=== PATIENT | female | born 2000 | race Two or more races ===

== ENCOUNTER 2018-01-14 13:47 | Emergency (ER) | payer OTHER ==
[2018-01-14] MEDS ORDERED: METOCLOPRAMIDE HCL 10 MG TABLET PO ONE (14:44)
[2018-01-14 14:53] LABS: AMORPHOUS SEDIMENT,URINE TRACE /HPF; APPEARANCE,URINE SLIGHTLY-CLOUDY; BILIRUBIN,URINE NEGATIVE (NEGATIVE); COLOR,URINE YELLOW; GLUCOSE, URINE NEGATIVE (NEGATIVE); KETONES,URINE NEGATIVE (NEGATIVE); LEUKOCYTE ESTERASE,URINE NEGATIVE (NEGATIVE); NITRITE,URINE NEGATIVE (NEGATIVE); PROTEIN,URINE NEGATIVE (NEGATIVE); URINE SPECIFIC GRAVITY 1.015; UROBILINOGEN,URINE NEGATIVE mg/dL (<2.0)
--- NOTE | 2018-01-14 14:59 | ER Document Report ---
ED GI/ - General Chief Complaint: Nausea Stated Complaint: NAUSEA Time Seen by Provider: 01/14/18 14:11 Mode of Arrival: Ambulatory Information source: Patient Notes: Patient is a 17-year-old female who presents to the ER today for nausea times 4 days. Patient denies any vomiting, diarrhea, abdominal pain, fever, chills, cough, runny nose or other symptoms. Patient does not think she is but is sexually active. Patient also states that her mother gets nauseous whenever she is stressed out and patient has had extra stress recently at school and home. TRAVEL OUTSIDE OF THE [place] IN LAST 30 DAYS: No - Related Data Allergies/Adverse Reactions: No Known Allergies Allergy (Verified 01/14/18 14:33) Past Medical History - General Information source: Patient - Social History Smoking Status: Never Smoker Chew tobacco use (# tins/day): No Frequency of alcohol use: None Drug Abuse: None Family History: Reviewed & Not Pertinent Patient has suicidal ideation: No Patient has homicidal ideation: No Renal/ Medical History: Denies: Hx Peritoneal Dialysis Review of Systems - Review of Systems Constitutional: No symptoms reported EENT: No symptoms reported Cardiovascular: No symptoms reported Respiratory: No symptoms reported Gastrointestinal: See HPI Genitourinary: No symptoms reported Female Genitourinary: No symptoms reported Musculoskeletal: No symptoms reported Skin: No symptoms reported Hematologic/Lymphatic: No symptoms reported Neurological/Psychological: No symptoms reported Physical Exam - Vital signs Vitals: Temp Pulse Resp BP Pulse Ox 98.5 F 83 16 131/75 H 100 01/14/18 13:53 01/14/18 13:53 01/14/18 13:53 01/14/18 13:53 01/14/18 13:53 - Notes Notes: PHYSICAL EXAMINATION: GENERAL: Well-appearing and in no acute distress. HEAD: Atraumatic, normocephalic. EYES: Pupils equal round and reactive to light, extraocular movements intact, sclera anicteric, conjunctiva are normal. ENT: ear canals without erythema or foreign body, TMs pearly elliott with good bony landmarks, nares patent, oropharynx clear without exudates. Moist mucous membranes. NECK: Normal range of motion, supple without lymphadenopathy LUNGS: CTAB and equal. No wheezes rales or rhonchi. HEART: Regular rate and rhythm without murmurs ABDOMEN: Soft, no tenderness. No guarding, no rebound BACK: no vertebral tenderness, normal ROM GI/: no CVA tenderness EXTREMITIES: Normal range of motion, no pitting edema. No cyanosis. NEUROLOGICAL: Cranial nerves grossly intact. Normal sensory/motor exams. PSYCH: Normal mood, normal affect. SKIN: Warm, Dry, normal turgor, no rashes or lesions noted Course - Re-evaluation Re-evalutation: 01/14/18 15:12 negative, urinalysis negative for any infection or blood. Patient did better with Reglan here, ate and drink without any nausea or issues. - Vital Signs Vital signs: Temp Pulse Resp BP Pulse Ox 98.5 F 91 H 16 119/69 99 01/14/18 15:16 01/14/18 15:16 01/14/18 15:16 01/14/18 15:16 01/14/18 15:16 Discharge - Discharge Clinical Impression: Nausea Condition: Stable Disposition: HOME, SELF-CARE Additional Instructions: Return immediately for any new or worsening symptoms. Follow up with primary care provider, call tomorrow to make followup appointment. Prescriptions: Metoclopramide HCl [Reglan 10 mg Tablet] 10 mg PO TID PRN #30 tablet PRN Reason:
[2018-01-14 15:18] VITALS: BP 119/69
== END 2018-01-14 15:18 | disposition home or self-care (01) ==
LOC: ER 13:47
DX: R11.0 Nausea (principal)
CPT/HCPCS: 81001; 81025; 99283

== ENCOUNTER 2019-09-29 11:47 | Emergency (ER) | payer OTHER ==
--- NOTE | 2019-09-29 12:23 | ER Document Report ---
ED Medical Screen (RME) - General Chief Complaint: Abdominal Pain Stated Complaint: ABDOMINAL PAIN, DIARRHEA,NAUSEA Time Seen by Provider: 09/29/19 12:21 Mode of Arrival: Ambulatory Information source: Patient Notes: 19-year-old female presented to ED for periumbilical abdominal pain and with nausea and diarrhea but no vomiting. She states his pain started on Thursday. She states she has not had any fevers but she has had chills. She denies any urinary symptoms. Last menstrual period was September 12, 2019 I have greeted and performed a rapid initial assessment of this patient. A comprehensive ED assessment and evaluation of the patient, analysis of test results and completion of medical decision making process will be conducted by an additional ED providers. TRAVEL OUTSIDE OF THE [place] IN LAST 30 DAYS: No - Related Data Allergies/Adverse Reactions: No Known Allergies Allergy (Verified 01/14/18 14:33) Past Medical History Renal/ Medical History: Denies: Hx Peritoneal Dialysis Physical Exam - Vital signs Vitals: Temp Pulse BP Pulse Ox 98.3 F 98 110/68 99 09/29/19 11:54 09/29/19 11:54 09/29/19 11:54 09/29/19 11:54 Course - Vital Signs Vital signs: Temp Pulse Resp BP Pulse Ox 98.3 F 98 110/68 99 09/29/19 11:54 09/29/19 11:54 09/29/19 11:54 09/29/19 11:54
[2019-09-29] MEDS ORDERED: ONDANSETRON 4 MG TAB.RAPDIS PO ONE (12:24)
[2019-09-29 12:51] LABS: HEMATOCRIT 43.6 % (36.0-47.0); HEMOGLOBIN 14.6 g/dL (12.0-15.5); MEAN CORPUSCULAR HEMOGLOBIN 29.3 pg (27.0-33.4); MEAN CORPUSCULAR HGB CONC 33.4 g/dL (32.0-36.0); MEAN CORPUSCULAR VOLUME 88 fl (80-97); PLATELET COUNT 330 10^3/uL (150-450); RED BLOOD COUNT 4.96 10^6/uL (3.72-5.28); WHITE BLOOD COUNT 14.1 10^3/uL (4.0-10.5)
[2019-09-29 13:10] LABS: ABSOLUTE LYMPHOCYTES# (MANUAL) 0.6 10^3/uL (0.5-4.7); ABSOLUTE MONOCYTES # (MANUAL) 0.8 10^3/uL (0.1-1.4); BASOPHILS % (MANUAL) 0 % (0-2); EOSINOPHILS % (MANUAL) 0 % (0-6); LYMPHOCYTES % (MANUAL) 4 % (13-45); MONOCYTES % (MANUAL) 6 % (3-13); SEGMENTED NEUTROPHILS % (MAN) 90 % (42-78); TOTAL CELLS COUNTED 100
[2019-09-29 13:11] LABS: ANISOCYTOSIS SLIGHT; PLATELET COMMENT ADEQUATE; POLYCHROMASIA SLIGHT
[2019-09-29 13:14] LABS: ALBUMIN 4.8 g/dL (3.5-5.0); ALKALINE PHOSPHATASE 96 U/L (38-126); ANION GAP 11 (5-19); ASPARTATE AMINO TRANSFERASE 18 U/L (14-36); BILIRUBIN,DIRECT 0.1 mg/dL (0.0-0.4); BILIRUBIN,TOTAL 0.5 mg/dL (0.2-1.3); BLOOD UREA NITROGEN 9 mg/dL (7-20); CALCIUM 9.8 mg/dL (8.4-10.2); CARBON DIOXIDE 25 mmol/L (22-30); CHLORIDE 107 mmol/L (98-107); GLUCOSE 96 mg/dL (75-110); POTASSIUM 4.7 mmol/L (3.6-5.0); TOTAL PROTEIN 8.3 g/dL (6.3-8.2)
[2019-09-29 13:15] LABS: APPEARANCE,URINE SLIGHTLY-CLOUDY; BILIRUBIN,URINE NEGATIVE (NEGATIVE); COLOR,URINE YELLOW; GLUCOSE, URINE NEGATIVE (NEGATIVE); KETONES,URINE 20 mg/dL (NEGATIVE); PROTEIN,URINE NEGATIVE (NEGATIVE); URINE SPECIFIC GRAVITY 1.025; UROBILINOGEN,URINE NEGATIVE mg/dL (<2.0)
--- NOTE | 2019-09-29 13:55 | ER Document Report ---
ED General - General Chief Complaint: Abdominal Pain Stated Complaint: ABDOMINAL PAIN, DIARRHEA,NAUSEA Time Seen by Provider: 09/29/19 12:21 Primary Care Provider: EVERETTE GARIBAY MD [Primary Care Provider] - Follow up as needed Mode of Arrival: Ambulatory TRAVEL OUTSIDE OF THE [place] IN LAST 30 DAYS: No - HPI Notes: Patient is a 19-year-old female with no significant past medical history presents complaining of right lower quadrant abdominal pain that is been present for the past 2 days and does not radiate. She does have associated nausea and some watery diarrhea. She has not noticed any vaginal discharge, odor, or bleeding. Denies drug allergies. No surgical history to her abdomen. Denies any headache, fever, neck pain, URI, sore throat, chest pain, palpitations, syncope, cough, shortness of breath, wheeze, dyspnea, vomiting, urinary retention, dysuria, hematuria, back pain, or rash. - Related Data Allergies/Adverse Reactions: No Known Allergies Allergy (Verified 09/29/19 12:23) Home Medications: denies Past Medical History - General Information source: Patient - Social History Smoking Status: Never Smoker Chew tobacco use (# tins/day): No Frequency of alcohol use: None Drug Abuse: None Family History: Reviewed & Not Pertinent Patient has suicidal ideation: No Patient has homicidal ideation: No Renal/ Medical History: Denies: Hx Peritoneal Dialysis Past Surgical History: Reports: Hx Oral Surgery - wisdom teeth Review of Systems - Review of Systems -: Yes All other systems reviewed and negative Physical Exam - Vital signs Vitals: Temp Pulse BP Pulse Ox 98.3 F 98 110/68 99 09/29/19 11:54 09/29/19 11:54 09/29/19 11:54 09/29/19 11:54 - Notes Notes: PHYSICAL EXAMINATION: GENERAL: Well-appearing, well-nourished and in no acute distress. HEAD: Atraumatic, normocephalic. EYES: Pupils equal round and reactive to light, extraocular movements intact, sclera anicteric, conjunctiva are normal. ENT: EAC clear b/l. TM's intact b/l without erythema, fluid, or perforation. Nares patent and without discharge. oropharynx clear without exudates. No tonsilar hypertrophy or erythema. Moist mucous membranes. No sinus tenderness. NECK: Normal range of motion, supple without lymphadenopathy LUNGS: Breath sounds clear to auscultation bilaterally and equal. No wheezes rales or rhonchi. HEART: Regular rate and rhythm without murmurs, rubs, gallops. ABDOMEN: Soft, nondistended abdomen. No guarding, no rebound. Normal bowel sounds present. No CVA tenderness bilaterally. + tenderness at [place] area. No lower pelvic or inguinal tenderness noted. Thakur neg. Musculoskeletal: FROM to passive/active. Strength 5+/5. Extremities: No cyanosis, clubbing, or edema b/l. Peripheral pulses 2+. Capillary refill less than 3 seconds. NEUROLOGICAL: Normal speech, normal gait. PSYCH: Normal mood, normal affect. SKIN: Warm, Dry, normal turgor, no rashes or lesions noted. Course - Re-evaluation Re-evalutation: 09/29/19 19:00 Patient is an afebrile, well-hydrated, 19-year-old female who presents to the ED with RLQ pain, suspect 2ndary to suggestive PCOS. Vitals are acceptable without any significant tachycardia, tachypnea, or hypoxia. PE is otherwise unremarkable. Labs acceptable. Pt declined STD testing at this time. Patient is nontoxic-appearing is tolerating p.o. without any difficulties. See CT/TVUS results. No other labs or imaging warranted at this time based on H&P. Low suspicion/risk for acute appendicitis, bowel obstruction, acute cholecystitis, acute cholangitis, perforated diverticulitis, incarcerated hernia, pancreatitis, perforated ulcer, peritonitis, sepsis, pelvic inflammatory disease, ectopic , tubo-ovarian abscess, ovarian torsion, or other systemic emergent condition at this time. Patient is aware that her condition can change from initial presentation and she needs to monitor symptoms closely and seek medical attention if any acute changes. Conservative measures otherwise for symptoms. Recheck with your PCM/OBGYN in 3-5 days. Return to the ED with any worsening/concerning symptoms otherwise as reviewed in discharge. Patient is in agreement. - Vital Signs Vital signs: Temp Pulse Resp BP Pulse Ox 98.3 F 98 110/68 99 09/29/19 11:54 09/29/19 11:54 09/29/19 11:54 09/29/19 11:54 - Laboratory Result Diagrams: 09/29/19 12:34 09/29/19 12:34 Laboratory results interpreted by me: 09/29/19 09/29/19 09/29/19 12:34 12:34 12:55 WBC 14.1 H Seg Neuts % (Manual) 90 H Lymphocytes % (Manual) 4 L Abs Neuts (Manual) 12.7 H Total Protein 8.3 H Urine Ketones 20 H Discharge - Discharge Clinical Impression: Right lower quadrant pain Condition: Stable Disposition: HOME, SELF-CARE Instructions: Observation for Appendicitis ([facility]), Ovarian Cyst ([facility]) Additional Instructions: Maintain fluid intake Proper hygienic technique Keep the skin clean Tylenol/ibuprofen as needed F/u with your PCM/OBGYN in 3-5 days for a recheck Return to the ED with any development of [place]/fever, trouble with vision, eye redness, worsening pain, urethral discharge, urinary retention, blood in the urine, flank pain, abdominal pain, n/v, Chest Pain, shortness of breath, joint pains, trouble breathing, or any other worsening/concerning symptoms as needed otherwise. Referrals: EVERETTE GARIBAY MD [Primary Care Provider] - Follow up as needed [facility] [Provider Group] - Follow up as needed
--- NOTE | 2019-09-29 17:40 | RADIOLOGY REPORT (SQ) ---
EXAM DESCRIPTION: CT ABD/PELVIS WITH IV ORAL COMPLETED DATE/TIME: 09/29/2019 5:20 pm REASON FOR STUDY: RLQ pain COMPARISON: None. TECHNIQUE: CT scan of the abdomen and pelvis performed using helical scanning technique with dynamic intravenous contrast injection. Oral contrast. Images reviewed with lung, soft tissue, and bone win dows. Reconstructed coronal and sagittal MPR images reviewed. Delayed images for evaluation of the ur inary system also acquired. All images stored on PACS. All CT scanners at this facility use dose modulation, iterative reconstruction, and/or weight based d osing when appropriate to reduce radiation dose to as low as reasonably achievable (ALARA). [facility]: Dose Right [facility]: CareDose [facility]: Dose Right [facility]: Teradose 4D [facility]: [employer] CONTRAST TYPE AND DOSE: contrast/concentration: Isovue 350.00 mg/ml; Total Contrast Delivered: 59.0 ml; Total Saline Delivered: 65.0 ml RENAL FUNCTION: BUN 9 creatinine 0.56 RADIATION DOSE: CT Rad equipment meets quality standard of care and radiation dose reduction techniq ues were employed. CTDIvol: 4.8 - 5.2 mGy. DLP: 496 mGy-cm.. LIMITATIONS: None. FINDINGS: LOWER CHEST: No significant findings. No nodules or infiltrates. LIVER: Normal size. No masses. No dilated ducts. SPLEEN: Normal size. No focal lesions. PANCREAS: No masses. No significant calcifications. No adjacent inflammation or peripancreatic fluid collections. Pancreatic duct not dilated. GALLBLADDER: No identified stones by CT criteria. No inflammatory changes to suggest cholecystitis. ADRENAL GLANDS: No significant masses or asymmetry. RIGHT KIDNEY AND URETER: No solid masses. No significant calcifications. No hydronephrosis or hyd roureter. LEFT KIDNEY AND URETER: No solid masses. No significant calcifications. No hydronephrosis or hydr oureter. AORTA AND VESSELS: No aneurysm. No dissection. Renal arteries, SMA, celiac without stenosis. RETROPERITONEUM: No retroperitoneal adenopathy, hemorrhage or masses. BOWEL AND PERITONEAL CAVITY: No masses or inflammatory changes. No free fluid or peritoneal masses. APPENDIX: Normal. PELVIS: The ovaries are prominent and there appear to be small ovarian cysts. ABDOMINAL WALL: No masses. No hernias. BONES: No significant or acute findings. OTHER: No other significant finding. IMPRESSION: The ovaries appear to be prominent and there appear to be small ovarian cysts. Is there history of polycystic ovarian syndrome? No other significant finding. Consider pelvic ultrasound. TECHNICAL DOCUMENTATION: JOB ID: [id number] Quality ID # [id number]: Final reports with documentation of one or more dose reduction techniques (e.g., Au tomated exposure control, adjustment of the mA and/or kV according to patient size, use of iterative reconstruction technique) 2010 [employer]- All Rights Reserved Reading location - IP/workstation name: [email or web address]
--- NOTE | 2019-09-29 18:51 | RADIOLOGY REPORT (SQ) ---
EXAM DESCRIPTION: U/S NON OB PEL TV W/DOPPLER COMPLETED DATE/TIME: 09/29/2019 6:42 pm REASON FOR STUDY: further eval RLQ pain, cysts on CT, eval torsion COMPARISON: None. TECHNIQUE: Dynamic and static grayscale images acquired of the pelvis via transvaginal approach and recorded on PACS. Additional selected color Doppler and spectral images recorded. LIMITATIONS: None. FINDINGS: UTERUS: Contour normal. No mass. ENDOMETRIAL STRIPE: No focal or generalized thickening. No masses. CERVIX: 2.4 cm. No nabothian cysts. RIGHT OVARY AND DOPPLER: Normal size. No worrisome masses. Normal arterial vascular flow without evid ence for torsion. Multiple small peripherally arranged follicles. LEFT OVARY AND DOPPLER: Normal size. No worrisome masses. Normal arterial vascular flow without evide nce for torsion. Multiple small peripherally arranged follicles. FREE FLUID: None noted. OTHER: No other significant finding. MEASUREMENTS: UTERUS: 7.3 x 3.8 x 3.2 cm. ENDOMETRIAL STRIPE: 7 mm. RIGHT OVARY: 2.7 x 3.2 x 2.9 cm. LEFT OVARY: 3 x 2.9 x 4 cm. IMPRESSION: Multiple follicles are seen in each ovary. The appearance raises concern for polycystic ovarian syndrome. No other significant finding. TECHNICAL DOCUMENTATION: JOB ID: [id number] [employer]- All Rights Reserved Rev-03/19 Reading location - IP/workstation name: [email or web address]
[2019-09-29 19:14] VITALS: BP 131/66
== END 2019-09-29 19:14 | disposition home or self-care (01) ==
LOC: ER 11:47
DX: R10.31 Right lower quadrant pain (principal); R19.7 Diarrhea, unspecified; R11.0 Nausea
CPT/HCPCS: 99284; 36415; 83690; 84703; 85025; 80053; 81001; 76830; 93976; 74177; S0119